=== PATIENT | female | born 1975 | race Caucasian/White ===

== ENCOUNTER 2021-06-06 13:05 | Day surgery (SDC) | payer MEDICARE, MEDICAID ==
[~2021-06-06] VITALS: Ht 160 cm; Wt 88.6 kg
[~2021-06-06 13:05] MED LIST: BAC10T PO; CITA20TA28 PO; DOCU-337; FISH OIL 1,2001 EAC1 PO; HYOS0.1285 SL; LEVO50TA8 PO; LORA1TAB PO; MODA200T25 PO; MULT-785 PO; PANT40TA39 PO; POLY17PO10 PO; SUMA25TA35 PO; TOP25T PO; [UNRECOGNIZED DRUG - OTHER]
[2021-06-06] MEDS ORDERED: MIDAZolam 1 MG/ML 5ML VIAL ONE (13:17)
[2021-06-06] MEDS ORDERED: LIDOcaine Viscous 15ml cup ONE (13:17)
[2021-06-06] MEDS ORDERED: fentaNYL/PF 50MCG/1 ML 2ML syringe ONE (13:17)
[2021-06-06 13:24] VITALS: BP 147/91
[2021-06-06 14:15] VITALS: BP 148/94
[2021-06-06 14:25] VITALS: BP 112/71
[2021-06-06] MEDS ORDERED: PARO20TA6 PO (14:32)
[2021-06-06] MEDS ORDERED: SENN8.6T19 PO (14:33)
[2021-06-06 14:35] VITALS: BP 107/58
[2021-06-06] MEDS ORDERED: IBUP-1985 PO (14:35)
[2021-06-06] MEDS ORDERED: SUMA100T16 PO (14:37)
[2021-06-06] MEDS ORDERED: VITAMIN D3 PO (14:39)
[2021-06-06] MEDS ORDERED: LORA10TA61 PO (14:40)
[2021-06-06] MEDS ORDERED: ESOM20CA PO (14:40)
[2021-06-06] MEDS ORDERED: LACT1CAP65 PO (14:41)
[2021-06-06] MEDS ORDERED: ATRIN INH (14:42)
[2021-06-06] MEDS ORDERED: ALBU2.5V13 NEB (14:43)
[2021-06-06 14:45] VITALS: BP 112/64
[2021-06-06 14:51] VITALS: BP 118/75
== END 2021-06-06 14:55 | disposition home or self-care (01) ==
LOC: GI LAB 13:05
PROVIDERS: ATTEND Internal Medicine Gastroenterology
DX: K94.23 Gastrostomy malfunction (principal); Z88.0 Allergy status to penicillin; Z88.8 Allergy status to other drugs, medicaments and biological substances; Z98.890 Other specified postprocedural states; Z83.3 Family history of diabetes mellitus; Y83.8 Other surgical procedures as the cause of abnormal reaction of the patient, or of later complication, without mention of misadventure at the time of the procedure; Y92.89 Other specified places as the place of occurrence of the external cause
CPT/HCPCS: 43246; 99152; A4620; A5120; B4087; J2250; J3010; J7040